=== PATIENT | male | born 1960 | race Caucasian/White ===

== ENCOUNTER → 2016-11-19 | Day surgery (SDC) | payer OTHER ==
[2016-11-14 14:07] VITALS: BMI 35.5
[~2016-11-19] MED LIST: ALPRAZolam 0.25 MG TAB PO PRN; ASPIRIN 325 MG TAB PO ONE; IOHEXOL 350 MG/ML 125ML BOTTLE INJ ONE; LIDOCAINE 2% INJ 20 MG/ML SQ ONE; MIDAZOLAM 2 MG/2 ML VIAL IV ONE; NITROGLYCERIN SL TABS 0.4 MG TAB SUBLINGUAL PRN; RX INFO: IV CONTRAST WAS GIVEN 1 EACH MISC MISCELLANE PRN; SODIUM CHLORIDE 0.9% 1,000 ML IV SCH; SODIUM CHLORIDE 0.9% 1,000 ML in EMPTY BAG 1 BAG IV ONE; diphenhydrAMINE 50 MG/ML 1 ML VIAL IVP ONE
[2016-11-19 06:58] VITALS: RESP 18; TEMP 98.2
[2016-11-19] MEDS: VERAPAMIL SYRINGE (5 MG/10 ML) INTRAARTER ONE ×2 (08:13→08:22)
--- NOTE | 2016-11-19 08:55 | CC ---
DATE OF SERVICE: 11/19/2016 PERFORMING PHYSICIAN: Dony Ying MD, human factors engineer. PROCEDURE PERFORMED: 1. Selective right and left coronary angiogram. 2. Left heart catheterization. INDICATION: This is a pleasant 56-year-old gentleman who was experiencing atypical chest discomfort and underwent myocardial perfusion imaging stress test which showed inferior ischemia. In view of that, the patient was scheduled to undergo a heart catheterization. APPROACH: Right radial artery. COMPLICATIONS: None. LEVEL OF SEDATION: Moderate with a sedation length about half an hour. PROCEDURE DESCRIPTION: After obtaining an informed consent, the patient was brought to the cardiac microbiology lab assistant. The right radial artery was cannulated using micropuncture technique. The micropuncture wire passed easily, then I placed 6 Romanian sheath in the right radial artery. Subsequently, I gave the patient 2 mg of verapamil IA and 3000 units of heparin IV. I did after that selective right and left coronary angiogram using JR4 and JL3.5 catheters. I did after that left heart catheterization using a the JL3.5, which flipped into the LV. The procedure was completed without any complication. SELECTIVE CORONARY ANGIOGRAM: 1. The right coronary artery is a large-caliber vessel. It is a dominant vessel. It is angiographically normal. It bifurcates distally into PDA and PLV branches; both are angiographically normal. 2. The left main is angiographically normal and bifurcates into the left circumflex and left anterior descending artery. 3. The left circumflex is a large-caliber vessel and it is a nondominant vessel. It is angiographically normal. 4. Left anterior descending artery: The proximal LAD is angiographically normal. The mid LAD is angiographically normal. The LAD distally is angiographically normal as well. The LAD gives rise into multiple diagonal branches. They are angiographically normal. HEMODYNAMICS: The left ventricular end-diastolic pressure was 8 to 12 mmHg and no gradient was identified across the aortic valve. CONCLUSION: 1. Normal coronary angiogram. 2. Normal left ventricular end-diastolic pressure.
--- NOTE | 2016-11-19 08:58 | LTR ---
November 19, 2016 RE: Sathish Johnston Dear Dr. Fontana: Mr. Sathish Johnston underwent a heart catheterization which showed normal coronaries. I want to thank you for allowing me to participate in his care and please do not hesitate to call if you have any questions or concerns. Sincerely, VIET MCDANIEL MD
[2016-11-19 14:11] VITALS: BP 113/60; PULSE 52
== END ==
LOC: CATHCVL 06:27
PROVIDERS: ATTEND Internal Medicine Interventional Cardiology
DX: R07.89 Other chest pain (principal); R94.39 Abnormal result of other cardiovascular function study; E66.3 Overweight; Z68.35 Body mass index [BMI] 35.0-35.9, adult; I10 Essential (primary) hypertension; Z82.49 Family history of ischemic heart disease and other diseases of the circulatory system; Z88.6 Allergy status to analgesic agent; Z82.3 Family history of stroke; Z87.891 Personal history of nicotine dependence; Z79.899 Other long term (current) drug therapy
CPT/HCPCS: 93458; 99152; 99153; C1894; J2001; J2250; J1200; J1644; Q9967

== ENCOUNTER 2017-02-04 05:39 | Observation (INO) | payer OTHER ==
[2017-02-04] MEDS ORDERED: NITROGLYCERIN SL TABS 0.4 MG TAB SUBLINGUAL STA ×3 (05:57)
[2017-02-04] MEDS ORDERED: ASPIRIN 81 MG CHEW PO STA (05:57)
--- NOTE | 2017-02-04 06:00 | ED ---
General Adult HPI - General Source: patient, RN notes reviewed Mode of arrival: wheelchair Limitations: no limitations <Nic Mayers - Last Filed: 02/04/17 05:57> <Tenzin Christiansen - Last Filed: 02/04/17 09:05> - General Chief complaint: Chest Pain Stated complaint: CHEST PAIN Time Seen by Provider: 02/04/17 05:42 - History of Present Illness Initial comments: Patient is a pleasant 56-year-old male presenting to the emergency Department with chest discomfort. Onset of symptoms was when he awoke from a nap around 6 PM. Symptoms have been persistent since that time. Patient has had difficulty sleeping. Discomfort feels like a muscle ache. Discomfort increases with arm movement and lying down. No dyspnea. Patient did feel a little bit nauseated and lightheaded earlier. No diaphoresis. No history of similar symptoms previously. did have neck surgery done in December. Patient had a heart catheterization done in October. (Nic Mayers) - Related Data Home Medications Medication Instructions Recorded Confirmed Losartan [Cozaar] 50 mg PO DAILY 11/14/16 02/04/17 amLODIPine BESYLATE [Norvasc] 2.5 mg PO DAILY 11/14/16 02/04/17 Aspirin EC [Ecotrin Low Dose] 162 mg PO DAILY PRN 02/04/17 02/04/17 Diazepam [Valium] 2 mg PO BID PRN 02/04/17 02/04/17 Allergies Allergy/AdvReac Type Severity Reaction Status Date / Time bee venom protein (honey bee) Allergy Anaphylaxis Verified 02/04/17 07:31 acetaminophen [From Tylenol] AdvReac ELEV LIVER Verified 02/04/17 07:31 ENZYMES Review of Systems ROS Other: All systems not noted in ROS Statement are negative. Constitutional: Denies: fever Eyes: Denies: eye pain ENT: Denies: ear pain Respiratory: Denies: cough, dyspnea Cardiovascular: Reports: chest pain Endocrine: Denies: fatigue Gastrointestinal: Denies: abdominal pain Genitourinary: Denies: dysuria Musculoskeletal: Denies: back pain Skin: Denies: rash <Nic Mayers - Last Filed: 02/04/17 05:57> ROS Other: All systems not noted in ROS Statement are negative. <Tenzin Christiansen - Last Filed: 02/04/17 09:05> ROS Statement: Those systems with pertinent positive or pertinent negative responses have been documented in the HPI. Past Medical History Past Medical History: Asthma, Hypertension, Musculoskeletal Disorder Additional Past Medical History / Comment(s): ABN EKG, STRESS TEST. SHORT OF BREATH WITH ACTIVITY. CHEST PRESSURE LAST WINTER. RECENT PLANNED CERVICAL FUSION CANCELED D/T EKG. History of Any Multi-Drug Resistant Organisms: None Reported Past Surgical History: Orthopedic Surgery Additional Past Surgical History / Comment(s): LT ROTATOR CUFF, CLAVICLE SURG. Past Anesthesia/Blood Transfusion Reactions: Motion Sickness, Postoperative Nausea & Vomiting (PONV) Past Psychological History: Anxiety, Depression Smoking Status: Former smoker - Past Family History Mother Family Medical History: No Reported History <Nic Mayers - Last Filed: 02/04/17 05:57> General Exam Limitations: no limitations General appearance: alert, in no apparent distress Head exam: Present: atraumatic Eye exam: Present: normal appearance, PERRL ENT exam: Present: normal oropharynx Neck exam: Present: other (Neck collar is in place) Respiratory exam: Present: normal lung sounds bilaterally. Absent: chest wall tenderness Cardiovascular Exam: Present: regular rate, normal rhythm Expanded Peripheral pulses: 2+: Radial (R), Radial (L), Posterior Tibialis (R), Posterior Tibialis (L) GI/Abdominal exam: Present: soft. Absent: tenderness Extremities exam: Present: normal inspection. Absent: pedal edema, calf tenderness Neurological exam: Present: alert Psychiatric exam: Present: normal affect, normal mood Skin exam: Present: normal color <Nic Mayers - Last Filed: 02/04/17 05:57> EKG Findings - EKG Comments: EKG Findings:: Normal sensory sinus 7. DC 180. QRS 100. QT 382. QTC 432. Left axis. Left anterior fascicular block. No acute ST change. <Nic Mayers - Last Filed: 02/04/17 05:57> Medical Decision Making <Nic Mayers - Last Filed: 02/04/17 05:57> - Lab Data Result diagrams: 02/04/17 05:49 02/04/17 05:49 - Radiology Data Radiology results: report reviewed (I did review the imaging and reports no acute findings. No evidence of PE.), image reviewed <Tenzin Christiansen - Last Filed: 02/04/17 09:05> - Medical Decision Making I did discuss findings with the patient. He does state he had a cath in October there was apparently clean. The pain he did have his left anterior chest pains pressure and tightness type pain to get better with nitroglycerin. Patient be admitted. Dr. Mayers had previously discussed the case with Dr. Turcios. (Tenzin Christiansen) - Lab Data Lab Results 02/04/17 02/04/17 02/04/17 Range/Units 05:49 05:49 05:49 WBC 8.0 (3.8-10.6) k/uL RBC 5.23 (4.30-5.90) m/uL Hgb 15.9 (13.0-17.5) gm/dL Hct 48.0 (39.0-53.0) % MCV 91.7 (80.0-100.0) fL MCH 30.3 (25.0-35.0) pg MCHC 33.1 (31.0-37.0) g/dL RDW 14.3 (11.5-15.5) % Plt Count 247 (150-450) k/uL Neutrophils % 71 % Lymphocytes % 16 % Monocytes % 9 % Eosinophils % 1 % Basophils % 1 % Neutrophils # 5.7 (1.3-7.7) k/uL Lymphocytes # 1.3 (1.0-4.8) k/uL Monocytes # 0.7 (0-1.0) k/uL Eosinophils # 0.1 (0-0.7) k/uL Basophils # 0.1 (0-0.2) k/uL PT (9.0-12.0) sec INR (<1.2) APTT (22.0-30.0) sec D-Dimer (<0.60) mg/L FEU Sodium 142 (137-145) mmol/L Potassium 4.3 (3.5-5.1) mmol/L Chloride 103 (98-107) mmol/L Carbon Dioxide 27 (22-30) mmol/L Anion Gap 12 mmol/L BUN 10 (9-20) mg/dL Creatinine 1.00 (0.66-1.25) mg/dL Est GFR (MDRD) Af Amer >60 (>60 ml/min/1.73 sqM) Est GFR (MDRD) Non-Af >60 (>60 ml/min/1.73 sqM) Glucose 110 H (74-99) mg/dL Calcium 9.7 (8.4-10.2) mg/dL Magnesium 1.8 (1.6-2.3) mg/dL Total Bilirubin 0.7 (0.2-1.3) mg/dL AST 40 (17-59) U/L ALT 94 H (21-72) U/L Alkaline Phosphatase 51 (38-126) U/L Total Creatine Kinase 128 (55-170) U/L CK-MB (CK-2) 0.6 (0.0-2.4) ng/mL CK-MB (CK-2) Rel Index 0.5 Troponin I <0.012 (0.000-0.034) ng/mL Total Protein 7.4 (6.3-8.2) g/dL Albumin 4.5 (3.5-5.0) g/dL 02/04/17 Range/Units 05:49 WBC (3.8-10.6) k/uL RBC (4.30-5.90) m/uL Hgb (13.0-17.5) gm/dL Hct (39.0-53.0) % MCV (80.0-100.0) fL MCH (25.0-35.0) pg MCHC (31.0-37.0) g/dL RDW (11.5-15.5) % Plt Count (150-450) k/uL Neutrophils % % Lymphocytes % % Monocytes % % Eosinophils % % Basophils % % Neutrophils # (1.3-7.7) k/uL Lymphocytes # (1.0-4.8) k/uL Monocytes # (0-1.0) k/uL Eosinophils # (0-0.7) k/uL Basophils # (0-0.2) k/uL PT 11.0 (9.0-12.0) sec INR 1.1 (<1.2) APTT 23.6 (22.0-30.0) sec D-Dimer 0.58 (<0.60) mg/L FEU Sodium (137-145) mmol/L Potassium (3.5-5.1) mmol/L Chloride (98-107) mmol/L Carbon Dioxide (22-30) mmol/L Anion Gap mmol/L BUN (9-20) mg/dL Creatinine (0.66-1.25) mg/dL Est GFR (MDRD) Af Amer (>60 ml/min/1.73 sqM) Est GFR (MDRD) Non-Af (>60 ml/min/1.73 sqM) Glucose (74-99) mg/dL Calcium (8.4-10.2) mg/dL Magnesium (1.6-2.3) mg/dL Total Bilirubin (0.2-1.3) mg/dL AST (17-59) U/L ALT (21-72) U/L Alkaline Phosphatase (38-126) U/L Total Creatine Kinase (55-170) U/L CK-MB (CK-2) (0.0-2.4) ng/mL CK-MB (CK-2) Rel Index Troponin I (0.000-0.034) ng/mL Total Protein (6.3-8.2) g/dL Albumin (3.5-5.0) g/dL Disposition <Nic Mayers - Last Filed: 02/04/17 05:57> <Tenzin Christiansen - Last Filed: 02/04/17 09:05> Clinical Impression: Chest pain Disposition: ADMITTED IP TO THIS HOSP Condition: Stable Referrals: Vishal Guzmán DO [Primary Care Provider] - 1-2 days
[2017-02-04 06:08] LABS: Basophils # (A) 0.1 k/uL (0-0.2); Basophils % (A) 1 %; CHCM 35.1; Eosinophils # (A) 0.1 k/uL (0-0.7); Eosinophils % (A) 1 %; HDW 2.99; HGB 15.9 gm/dL (13.0-17.5); Luc # (Auto) 0.23; Luc % (Auto) 3; Lymphocytes # (A) 1.3 k/uL (1.0-4.8); Lymphocytes % (A) 16 %; MCH 30.3 pg (25.0-35.0); MCHC 33.1 g/dL (31.0-37.0); MCV 91.7 fL (80.0-100.0); Mean Platelet Volume 7.6; Monocytes # (A) 0.7 k/uL (0-1.0); Monocytes % (A) 9 %; Neutrophils # (A) 5.7 k/uL (1.3-7.7); Neutrophils % (A) 71 %; RBC 5.23 m/uL (4.30-5.90); RDW 14.3 % (11.5-15.5); WBC (Perox) 7.68
[2017-02-04 06:19] LABS: ALT 94 U/L (21-72); AST 40 U/L (17-59); Alkaline Phosphatase 51 U/L (38-126); Anion Gap 12 mmol/L; Blood Urea Nitrogen 10 mg/dL (9-20); Calcium 9.7 mg/dL (8.4-10.2); Carbon Dioxide 27 mmol/L (22-30); Chloride 103 mmol/L (98-107); Glucose 110 mg/dL (74-99); Magnesium 1.8 mg/dL (1.6-2.3); Non-African American GFR(MDRD) >60 (>60 ml/min/1.73 sqM); Potassium 4.3 mmol/L (3.5-5.1); Sodium 142 mmol/L (137-145); Total Bilirubin 0.7 mg/dL (0.2-1.3); Total Protein 7.4 g/dL (6.3-8.2)
[2017-02-04 06:24] LABS: INR 1.1 (<1.2); Partial Thromboplastin Time 23.6 sec (22.0-30.0)
[2017-02-04 06:38] LABS: Creatine Kinase 128 U/L (55-170)
[2017-02-04] MEDS ORDERED: RX INFO: IV CONTRAST WAS GIVEN 1 EACH MISC MISCELLANE PRN (06:40)
[2017-02-04 06:51] LABS: Creatine Kinase MB 0.6 ng/mL (0.0-2.4); Troponin I <0.012 ng/mL (0.000-0.034)
--- NOTE | 2017-02-04 07:04 | XR ---
EXAM: XR Chest, 1 View CLINICAL HISTORY: Reason: chest pain TECHNIQUE: Frontal view of the chest. COMPARISON: No relevant prior studies available. FINDINGS: Lungs: Unremarkable. No consolidation. Pleural space: Unremarkable. No pneumothorax. Heart: Unremarkable. No cardiomegaly. Mediastinum: Unremarkable. Bones/joints: Suspect old in lateral half of left lateral clavicle. IMPRESSION: No acute findings
--- NOTE | 2017-02-04 08:17 | CT ---
EXAMINATION TYPE: CT angio chest DATE OF EXAM: 02/04/2017 COMPARISON: NONE HISTORY: 56-year-old male with chest pain, evaluate for PE TECHNIQUE: Contiguous axial scanning of the chest performed with IV Contrast, patient injected with 8 0 mL of Omnipaque 350. Coronal/sagittal MIP reconstructions performed. CT DLP: 518.4 mGycm Automated exposure control for dose reduction was used. FINDINGS: The heart is normal size without significant pericardial effusion. Ascending aorta is borderline ectatic at 3.5 cm. There is satisfactory opacification of the pulmonary arterial system. No evidence for pulmonary embol us. Scattered nonenlarged mediastinal lymph nodes are present. There is bilateral gynecomastia. Some strandy atelectasis at the lung bases and mild dependent atelectasis. Mild circumferential bronc hial wall thickening is noted. No consolidation or pleural effusion. There is low attenuation of the hepatic parenchyma compatible with fatty infiltration. Sclerotic focu s within the posterior right glenoid has nonaggressive features, probable bone island. No osseous adam tructive process. IMPRESSION: 1. NO EVIDENCE FOR PULMONARY EMBOLUS. 2. MILD DIFFUSE BRONCHIAL WALL THICKENING COULD REPRESENT BRONCHITIS OR CHRONIC ASTHMA. 3. HEPATIC STEATOSIS. CORRELATE WITH LFT's, LIPID PROFILE, AND PATIENT RISK FACTORS.
[2017-02-04] MEDS ORDERED: HEPARIN SODIUM,PORCINE 5,000 UNIT/ML 1 ML VIAL IV ONE (09:05)
[2017-02-04] MEDS ORDERED: NITROGLYCERIN SL TABS 0.4 MG TAB SUBLINGUAL PRN (09:05)
[2017-02-04] MEDS ORDERED: ASPIRIN 81 MG CHEW PO PRN (09:08)
[2017-02-04] MEDS ORDERED: DIAZEPAM 2 MG TAB PO PRN (09:08)
[2017-02-04] MEDS ORDERED: SODIUM CHLORIDE 0.9% 1,000 ML IV SCH (09:15)
[2017-02-04] MEDS ORDERED: HEPARIN SODIUM,PORCINE/D5W PMX 25,000 UNIT in DEXTROSE/WATER 1 500ML.BAG IV SCH (09:15)
[2017-02-04] MEDS ORDERED: NITROGLYCERIN OINT 1 INCH/GM PACKET TOPICAL SCH (12:00)
[2017-02-04 12:19] LABS: Creatine Kinase 100 U/L (55-170)
[2017-02-04 12:30] LABS: Creatine Kinase MB 0.4 ng/mL (0.0-2.4); Troponin I <0.012 ng/mL (0.000-0.034)
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
[2017-02-04 16:10] VITALS: BP 139/84; PULSE 71; RESP 16; TEMP 98.1
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
--- NOTE | 2017-02-05 00:47 | P.DS ---
Providers Date of admission: 02/04/17 09:05 Expected date of discharge: 02/04/17 Attending physician: Jack Turcios Consults: 02/04/17 09:05 Consult Physician Urgent Consulting Provider: Dony Ying Consult Reason/Comments: Chest pain Do you want consulting provider notified?: Yes Primary care physician: Vishal Guzmán Hospital Course: Discharge diagnosis #1 chest pain most likely musculoskeletal in origin. Rule out acute coronary syndrome #2 recent cervical surgery due to disc disease in October 2016 #3 asthma #4 hypertension controlled. #5 elevated d-dimer. CT and a gram-negative for PE. Hospital course: This is a 56-year-old male with a past medical history significant for hypertension and asthma and recently had a cervical discectomy and fusion C3-C4 December 31. Patient presents with complaints of sharp chest pain in the left chest wall. He states he woke up from a nap yesterday at 6 PM sharp pain. The pain was persistent and getting increasingly worse as the night went on. The pain was associated with mild nausea. The patient denies radiation of the pain , shortness of breath, dizziness or palpitations. He does state that whenever he moved his arms or his upper body the pain increased. EKG done shows normal sinus mechanism with nonspecific changes, rate of 77 beats per minute with no T-wave abnormality. When compared with old EKG this appears the same. CBC was within normal limits, coagulation profile at baseline with d-dimer 0.58. First set of CPK and troponin are normal x 2. CTA was performed due to his recent surgery and it showed no pulmonary embolism. Most recent echo dated 11/14/2016 performed in the office as an outpatient indicates maintained left ventricular size and function with an ejection fraction of 55% with mild concentric hypertrophy, mild mitral regurgitation, trace aortic regurgitation and mild tricuspid regurgitation. He had a cardiac catheterization performed with Dr. Ying 11/19/2016 which showed normal coronary arteries. Patient had serial EKG and troponins 2 negative. Currently patient is chest pain-free Since the patient has recent cardiac workup including normal coronaries on cardiac catheterization, Cardiolite once no further workup at this time. Patient is stable to be discharged home. Discharge physical examination was done Patient Condition at Discharge: Stable Plan - Discharge Summary New Discharge Prescriptions: Continue Losartan [Cozaar] 50 mg PO DAILY amLODIPine BESYLATE [Norvasc] 2.5 mg PO DAILY Diazepam [Valium] 2 mg PO BID PRN PRN Reason: Anxiety Aspirin EC [Ecotrin Low Dose] 162 mg PO DAILY PRN PRN Reason: Chest Pain Discharge Medication List Losartan [Cozaar] 50 mg PO DAILY 11/14/16 [History] amLODIPine BESYLATE [Norvasc] 2.5 mg PO DAILY 11/14/16 [History] Aspirin EC [Ecotrin Low Dose] 162 mg PO DAILY PRN 02/04/17 [History] Diazepam [Valium] 2 mg PO BID PRN 02/04/17 [History] Follow up Appointment(s)/Referral(s): Vishal Guzmán DO [Primary Care Provider] - 1-2 days Patient Instructions/Handouts: Chest Pain (GEN) Discharge Disposition: HOME SELF-CARE
[2017-02-05] MEDS ORDERED: amLODIPine 2.5 MG TAB PO SCH (09:00)
[2017-02-05] MEDS ORDERED: ASPIRIN 325 MG TAB PO SCH (09:00)
[2017-02-05] MEDS ORDERED: LOSARTAN 50 MG TAB PO SCH (09:00)
== END 2017-02-04 18:14 | disposition home or self-care (01) ==
LOC: EC 05:39 → 3OBS 09:05
PROVIDERS: ADMIT Hospitalist; ATTEND Hospitalist
DX: R07.89 Other chest pain (principal); I11.9 Hypertensive heart disease without heart failure; F41.9 Anxiety disorder, unspecified; J45.909 Unspecified asthma, uncomplicated; R79.89 Other specified abnormal findings of blood chemistry; Z87.891 Personal history of nicotine dependence; Z79.899 Other long term (current) drug therapy; Z88.6 Allergy status to analgesic agent; Z91.030 Bee allergy status; Z82.3 Family history of stroke; Z98.1 Arthrodesis status
CPT/HCPCS: 99285; 96376; 96365; 96366 ×2; 36415; 93005; 85379; 80053; 82550; 82553; 83735; 84484; 85025; 85610; 85730; 71010; 71275; G0378; J1644 ×2; Q9967

== ENCOUNTER → 2021-01-10 | Outpatient (CLI) | payer BC ==
--- NOTE | 2021-01-10 12:19 | XR ---
EXAMINATION TYPE: XR cervical spine w flex/ext DATE OF EXAM: 01/10/2021 TECHNIQUE: Frontal, lateral, oblique, swimmers, and open mouth view and flexion and extension of the cervical spine are obtained. HISTORY: Z98.1 COMPARISON: None FINDINGS: Patient is status post anterior fusion of C3-4. No enlargement of the prevertebral soft tissues. Mult ilevel endplate sclerosis and osteophytosis is seen. There is no enlargement of the prevertebral soft tissues. Multilevel uncovertebral and facet arthropathy is seen with bony encroachment upon the left C2-3, C3-4, C5-6 and C6-7 and the right C5-6 and C6-7 neural foramen. There is no definite abnormal motion on flexion and extension imaging. IMPRESSION: Status post anterior fusion of C3-4. 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
== END | disposition home or self-care (01) ==
LOC: RADXRMAIN 09:13
PROVIDERS: ATTEND Orthopaedic Surgery
DX: M50.323 Other cervical disc degeneration at C6-C7 level (principal); M47.812 Spondylosis without myelopathy or radiculopathy, cervical region; Z98.1 Arthrodesis status
CPT/HCPCS: 72052

== ENCOUNTER → 2021-02-12 | Outpatient (CLI) | payer MEDICARE ==
[2021-02-12 16:03] LABS: Basophils # (A) 0.06 X 10*3/uL (0.00-0.10); Basophils % (A) 1.1 %; Eosinophils # (A) 0.08 X 10*3/uL (0.04-0.35); Eosinophils % (A) 1.5 %; HCT 48.2 % (39.6-50.0); HGB 15.9 g/dL (13.0-17.0); Lymphocytes # (A) 1.19 X 10*3/uL (0.90-5.00); Lymphocytes % (A) 22.5 %; MCH 30.8 pg (27.0-32.0); MCV 93.2 fL (80.0-97.0); Mean Platelet Volume 11.2 fL (9.5-12.2); Monocytes # (A) 0.59 X 10*3/uL (0.20-1.00); Monocytes % (A) 11.2 %; Neutrophils # (A) 3.34 X 10*3/uL (1.80-7.70); Neutrophils % (A) 63.3 %; Platelet Count 214 X 10*3/uL (140-440); RBC 5.17 X 10*6/uL (4.40-5.60); RDW 13.6 % (11.5-14.5); WBC 5.28 X 10*3/uL (4.50-10.00)
[2021-02-12 20:03] LABS: African American GFR (CKD) 95.1 (60.0-200.0); Albumin 4.6 g/dL (3.80-4.90); Albumin/Globulin Ratio 1.84 (1.60-3.17); Anion Gap 11.3 mmol/L (4.00-12.00); Calcium 9.2 mg/dL (8.7-10.3); Carbon Dioxide 25.7 mmol/L (21.6-31.8); Chol/HDL Ratio 4.16; Globulin 2.5 g/dL (1.6-3.3); LDL Cholesterol,Calculated 120.4 mg/dL (0.0-131.0); Potassium 4.9 mmol/L (3.5-5.5); Total Bilirubin 0.9 mg/dL (0.2-1.2); Total Protein 7.1 g/dL (6.2-8.2); VLDL Calculation 15.6 mg/dL (5.00-40.00)
== END | disposition home or self-care (01) ==
LOC: LABWHC1 07:51
PROVIDERS: ATTEND Family Medicine
DX: E78.2 Mixed hyperlipidemia (principal); E03.9 Hypothyroidism, unspecified; I10 Essential (primary) hypertension; R73.01 Impaired fasting glucose
CPT/HCPCS: 36415; 80053; 80061; 85025

== ENCOUNTER 2023-04-18 16:59 | Emergency (ER) | payer MEDICARE ==
[2023-04-18] MEDS ORDERED: SODIUM CHLORIDE 0.9% 1,000 ML IV STA (17:06)
[2023-04-18 17:14] VITALS: TEMP 97.9
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
[2023-04-18 17:38] LABS: Basophils % (A) 0 %; Eosinophils % (A) 0 %; HCT 37.1 % (39.0-53.0); Lymphocytes # (A) 0.9 k/uL (1.0-4.8); Lymphocytes % (A) 8 %; MCH 32.3 pg (25.0-35.0); MCHC 34.9 g/dL (31.0-37.0); MCV 92.5 fL (80.0-100.0); Monocytes # (A) 0.5 k/uL (0-1.0); Monocytes % (A) 5 %; Neutrophils # (A) 10.1 k/uL (1.3-7.7); Neutrophils % (A) 87 %; Platelet Count 283 k/uL (150-450); RBC 4.01 m/uL (4.30-5.90); RDW 12.9 % (11.5-15.5); WBC 11.6 k/uL (3.8-10.6)
[2023-04-18 17:50] LABS: ALT 29 U/L (4-49); AST 28 U/L (17-59); African American GFR (CKD) >90 (>60 ml/min/1.73 sqM); Albumin 3.5 g/dL (3.5-5.0); Alkaline Phosphatase 34 U/L (38-126); Anion Gap 7 mmol/L; Blood Urea Nitrogen 21 mg/dL (9-20); Calcium 8.8 mg/dL (8.4-10.2); Carbon Dioxide 23 mmol/L (22-30); Chloride 107 mmol/L (98-107); Glucose 172 mg/dL (74-99); Magnesium 1.9 mg/dL (1.6-2.3); Non-African American GFR(CKD) >90 (>60 ml/min/1.73 sqM); Phosphorus 3.6 mg/dL (2.5-4.5); Potassium 4.2 mmol/L (3.5-5.1); Sodium 137 mmol/L (137-145); Total Bilirubin 0.5 mg/dL (0.2-1.3); Total Protein 5.9 g/dL (6.3-8.2)
[2023-04-18 17:58] LABS: INR 1.1 (<1.2); Partial Thromboplastin Time 20.3 sec (22.0-30.0); Prothrombin Time 11.7 sec (10.0-12.5)
[2023-04-18 18:00] LABS: NT-Pro-B-Type Natriuretic Pept 36 pg/mL
[2023-04-18 20:03] VITALS: BP 121/80; PULSE 62; RESP 19
== END 2023-04-18 19:57 | disposition home or self-care (01) ==
LOC: EC 16:59
DX: I95.1 Orthostatic hypotension (principal); I10 Essential (primary) hypertension; J45.909 Unspecified asthma, uncomplicated; F41.9 Anxiety disorder, unspecified; F32.A Depression, unspecified; Z79.52 Long term (current) use of systemic steroids; Z79.899 Other long term (current) drug therapy; Z88.6 Allergy status to analgesic agent; Z91.030 Bee allergy status
CPT/HCPCS: 36415; 80053; 83735; 83880; 84100; 84484; 85025; 85379; 85610; 85730; 93005; 96360; 99284